=== PATIENT | male | born 1980 | race Caucasian/White ===

== ENCOUNTER → 2020-03-18 | Outpatient (CLI) | payer BC ==
[~2020-03-18] MED LIST: ALLEGRA-D 24HOU1 T24 PO; ASPIR-LOW81 MG PO; CALCIUM 6001 TAB; FIBRO-TABS1 TAB PO; LEVAQUIN 250MG250 MG PO; MIDRIN; NO HOME MEDICATIONS; PREDNISONE20 MG PO; TOPAMAX 100MG100 MG PO; TOPAMAX100 MG PO; VITAMIN C500 MG PO; ZYRTEC5 MG
== END ==
LOC: COL.RAD 08:59
DX: S43.401A Unspecified sprain of right shoulder joint, initial encounter (principal)
CPT/HCPCS: A9585; Q9967

== ENCOUNTER 2022-03-16 08:17 | Observation (INO) | payer BC ==
[~2022-03-16] VITALS: Ht 172.7 cm; Wt 109.1 kg
[2022-03-16] VITALS (7 sets, daily range): BP systolic 96–113; BP diastolic 56–70; PULSE 78–96; TEMP 98.1–98.8
[2022-03-16 08:57] LABS: COLLECTION METHOD CLEAN CATCH
[2022-03-16 09:02] LABS: HEMATOCRIT 45.8 % (42.0-52.0); MEAN CELL VOLUME 90 fl (80.0-100.0); MEAN CORPUSCULAR HEMOGLOBIN 31 pg (27-31); MEAN CORPUSCULAR HGB CONC 35 g/dl (33.0-37.0); PLATELET COUNT 267 K/mm3 (130-400); RED BLOOD COUNT 5.09 M/mm3 (4.20-5.60); REDCELL DISTRIBUTION WIDTH-CV 12.7 % (11.5-14.5)
[2022-03-16 09:07] LABS: URINE APPEARANCE Clear (CLEAR/HAZY); URINE BLOOD Negative (NEGATIVE); URINE COLOR Yellow (YELLOW); URINE GLUCOSE Negative (NEGATIVE); URINE KETONE Negative (NEGATIVE); URINE NITRATE Negative (NEGATIVE); URINE PROTEIN(semi-quant) Negative (NEGATIVE); URINE UROBILINOGEN 0.2 E.U/dL (0.2-1.0)
[2022-03-16 09:08] LABS: MUCOUS Present (NOT PRESENT); SQUAMOUS EPITHELIAL 0-2 /hpf (0-10); URINE BACTERIA None Seen /hpf (NONE SEEN); URINE RBC 0-2 /hpf (0-2)
[2022-03-16 09:25] LABS: BAND 5 % (0-10); BASOPHIL 1 % (0-2); LYMPHOCYTE 10 % (20.0-51.0); NEUTROPHILS 78 % (42.0-75.2); PLATELET ESTIMATE NORMAL (NORMAL)
[2022-03-16 09:34] LABS: ALBUMIN 4.2 gm/dL (3.5-5.0); BILIRUBIN,TOTAL 0.4 mg/dL (0.2-1.2); C-REACTIVE PROTEIN 0.49 mg/dL (0.00-0.50); CREATININE, serum 0.91 mg/dL (0.72-1.25); TOTAL PROTEIN 7.4 gm/dL (6.2-8.1)
[2022-03-16] MEDS ORDERED: NORCO 325 MG-51 TAB PO (13:39)
[2022-03-16] MEDS ORDERED: MOTRIN 600600 MG/TAB PO (13:40)
--- NOTE | 2022-03-16 14:58 | NUR ---
Patient arrived from [facility]. LUNGs CTA. 3 Lap incision on abdomen intact. No drainage noted. Patient oriented to room.Instruction given on how to use the call and order food from the kitchen. Patient denies pain at this time. Call dudley place within reach. Family member at the bedside.
--- NOTE | 2022-03-16 15:28 | NUR ---
Maxim crackers and apple juice offered, patient tolerated well.Patient denies pain.
--- NOTE | 2022-03-16 15:28 | NUR ---
Maxim crackers and apple juice offered, patient tolerated well.Patient denies pain.
--- NOTE | 2022-03-16 16:21 | NUR ---
Patient ate lunch and tolerated PO intake. No episode of n/v. Assisted patient to the bathroom to void. Patient voided without difficulty and escorted patient back to bed with no issues. Patient denies pain / Family at the bedside.
== END 2022-03-16 17:45 | disposition home or self-care (01) ==
LOC: COL.ER 08:17 → SURG 12:06
PROVIDERS: Family Medicine; ADMIT Surgery
DX: K35.80 Unspecified acute appendicitis (principal); K21.9 Gastro-esophageal reflux disease without esophagitis; F17.210 Nicotine dependence, cigarettes, uncomplicated
CPT/HCPCS: G0378; J0690; J1100; J1885; J2405; J2543; J2704; J3010; J7120; Q9967

== ENCOUNTER 2023-10-11 05:42 | Day surgery (SDC) | payer BC ==
[~2023-10-11] VITALS: Ht 174 cm; Wt 123.4 kg
[2023-10-11] VITALS (13 sets, daily range): BP systolic 118–150; BP diastolic 72–91; PULSE 72–98; TEMP 97.8–98.6
[~2023-10-11 05:42] MED LIST changes: +ASPIRIN 81M81 MG/TA2 PO; +CEPHALEXIN500 M1 PO; +LR 1,000 ML IV SCH; +MOTRIN 600600 MG/TAB PO; +NORCO 325 MG-51 TAB PO; +PEPCID AC20 MG PO; +ULTRAM 50MG TAB50 MG PO; +VITAMINC1000TA PO; +WELLBUTRIN XL150 MG PO
[2023-10-11] MEDS ORDERED: ALLEGRA ALLERGY60 MG PO (06:21)
[2023-10-11] MEDS ORDERED: Meperidine 50 MG/ML 1 ML VIAL IV PRN (07:00)
[2023-10-11] MEDS ORDERED: fentaNYL 50 MCG/ML 1 ML SYRINGE/VIAL [PACU/SDC ONLY] IV PRN (07:00)
[2023-10-11] MEDS ORDERED: droPERidol 2.5 MG/ML 2 ML VIAL IV PRN (07:00)
[2023-10-11] MEDS ORDERED: Ondansetron 4 MG/2 ML VIAL IV PRN (07:00)
[2023-10-11] MEDS ORDERED: Morphine 2 MG/1 ML VIAL [PACU/SDC ONLY] IV PRN (07:00)
[2023-10-11] MEDS ORDERED: HYDROmorphone 1 MG/1 ML SYRINGE [PACU/SDC ONLY] IV PRN (07:00)
[2023-10-11] MEDS ORDERED: Thrombin Human (Recombinant) 5,000 UNITS VIAL TP ONE (08:00)
[2023-10-11] MEDS ORDERED: Ketorolac 30 MG/ML VIAL IM ONE (08:00)
[2023-10-11] MEDS ORDERED: Morphine 4 MG/ML VIAL IM ONE (08:00)
[2023-10-11] MEDS ORDERED: Acetaminophen 500 MG TAB PO PRN (09:45)
[2023-10-11] MEDS ORDERED: Mag/Al Hydrox/Simeth Susp 30 ML CUP PO PRN (09:45)
[2023-10-11] MEDS ORDERED: Morphine 4 MG/ML VIAL IV PRN (09:45)
[2023-10-11] MEDS ORDERED: oxyCODONE 5 MG TAB PO PRN (09:45)
[2023-10-11] MEDS ORDERED: NS 1,000 ML IV SCH (09:45)
[2023-10-11] MEDS ORDERED: Magnes Hydrox (MOM) 80 MG/ML 30 ML CUP PO PRN (09:45)
[2023-10-11] MEDS ORDERED: Bisacodyl 5 MG TAB PO PRN (09:45)
[2023-10-11] MEDS ORDERED: Naloxone 0.4 MG/ML VIAL IV PRN (09:45)
--- NOTE | 2023-10-11 10:32 | NUR ---
0547 Patient ambulatory to bay 1 with steady gait, breathing even and unlabored. Pt is alert and oriented, accompanied by his . Consents reviewed and signed by the patient. IV established. LR infusion via dial a flow at [facility]. Call light in reach. Warm blanket provided.
[2023-10-11] MEDS ORDERED: Acetaminophen 500 MG TAB PO SCH (13:00)
[2023-10-11] MEDS ORDERED: Famotidine 20 MG TAB PO PRN (15:30)
[2023-10-11] MEDS ORDERED: ALEVE 220MG220 MG PO (15:35)
[2023-10-11] MEDS ORDERED: ceFAZolin 2 G in Water For Injection,Sterile 20 ML IV SCH (16:00)
[2023-10-11] MEDS ORDERED: Ketorolac 15 MG/ML VIAL IV SCH (16:00)
--- NOTE | 2023-10-11 19:28 | NUR ---
Patient has done well post op today. His supportive at bedside. Pain well managed with scheduled toradol & tylenol. 06/09. Left knee dressing CDI. Hemovac to compression. LLE elevated and iced. CMS intact. Vss on room air. He has tolerated diet well without nausea. Bedside report to Keena to resume cares
--- NOTE | 2023-10-11 20:45 | NUR ---
Patient assessed at this time, see shift assessment, A/Ox4, denies pain or discomfort at this time, IV to right hand infusing well, with bulky dressing to left knee, clean, dry and intact, with hemovac drained 80ml serousanguinous, denies further needs, call light and personal items within reach.
[2023-10-11] MEDS ORDERED: Ascorbic Acid 500 MG TAB PO SCH (21:00)
[2023-10-11] MEDS ORDERED: Fexofenadine 60 MG BID **** subs to Loratadine 10 MG DAILY PO SCH (21:00)
[2023-10-11] MEDS ORDERED: Sennosides/Docusate 8.6-50 MG TAB PO SCH (21:00)
--- NOTE | 2023-10-11 22:43 | NUR ---
Assisted patient to the bathroom with SBA, voiding fine.
[2023-10-12] VITALS (7 sets, daily range): BP systolic 127–146; BP diastolic 77–80; PULSE 82–91; TEMP 97.9–98
[2023-10-12] MEDS ORDERED: Magnes Hydrox (MOM) 80 MG/ML 30 ML CUP PO SCH (09:00)
[2023-10-12] MEDS ORDERED: Loratadine 10 MG TAB PO SCH (09:00)
[2023-10-12] MEDS ORDERED: buPROPion XL (24-HR) 150 MG TAB PO SCH (09:00)
--- NOTE | 2023-10-12 09:48 | NUR ---
PT UP TO RECLINER FOR BREAKFAST AFTER USING BR. IN TO SEE PT THIS AM. POSSIBLE DISCHARGE AFTER WORKING WITH THERAPY THIS PM. SEE CHART FOR ORDERS.
[2023-10-15] MEDS ORDERED: Celecoxib 200 MG CAP PO SCH (21:00)
== END 2023-10-12 16:45 | disposition home or self-care (01) ==
LOC: SDCO 05:42 → SURG 09:32 → SDCO 10:10 → SURG 10-13 10:10 → SDCO 10-13 10:10
DX: M17.12 Unilateral primary osteoarthritis, left knee (principal); K21.9 Gastro-esophageal reflux disease without esophagitis; F32.A Depression, unspecified; J30.2 Other seasonal allergic rhinitis; F17.210 Nicotine dependence, cigarettes, uncomplicated; Z79.899 Other long term (current) drug therapy
CPT/HCPCS: OP; A6197; A9284; C1713; C1776; J0690; J1580; J1885; J2270; J2795; J7120

== ENCOUNTER → 2023-12-31 | Outpatient (CLI) | payer BC ==
[~2023-12-31] MED LIST changes: +ALEVE 220MG220 MG PO; +ALLEGRA ALLERGY60 MG PO; -LR 1,000 ML IV SCH
== END ==
LOC: COL.RAD 12:12
DX: I82.432 Acute embolism and thrombosis of left popliteal vein (principal); I82.452 Acute embolism and thrombosis of left peroneal vein